=== PATIENT | female | born 1975 | race Caucasian/White ===

== ENCOUNTER → 2016-12-25 | Outpatient (CLI) | payer BC ==
[~2016-12-25] MED LIST: ATIVAN 0.50.5 MG/TAB PO; ELINEST PO; FIBER0.52 GM PO; FISH OIL 1000MG1 CAP PO; FLEXERIL 1010 MG/TAB PO; MULTI VITAMINS1 TAB PO; NORCO 325 MG-51 TAB PO; VITAMIN B125000 MCG SL
== END ==
LOC: MC.RAD 07:54
DX: Z12.31 Encounter for screening mammogram for malignant neoplasm of breast (principal)

== ENCOUNTER → 2018-03-19 | Outpatient (CLI) | payer BC | LOC: MC.RAD 12:46 | DX: Z12.31 Encounter for screening mammogram for malignant neoplasm of breast (principal) ==

== ENCOUNTER → 2019-06-10 | Outpatient (CLI) | payer BC | LOC: MC.RAD 07:42 | DX: Z12.31 Encounter for screening mammogram for malignant neoplasm of breast (principal) ==

== ENCOUNTER → 2021-07-08 | Outpatient (CLI) | payer BC | LOC: MC.RAD 07:23 | DX: Z12.31 Encounter for screening mammogram for malignant neoplasm of breast (principal) ==

== ENCOUNTER 2022-07-28 06:10 | Day surgery (SDC) | payer BC ==
[~2022-07-28] VITALS: Ht 175.3 cm; Wt 96.6 kg
[2022-07-28] MEDS ORDERED: ZESTRIL 10MG10 MG PO (06:47)
[2022-07-28] MEDS ORDERED: AMBIEN 10MG10 MG PO (06:47)
[2022-07-28] MEDS ORDERED: CRYSELLE 30 MCG1 TAB PO (06:51)
[2022-07-28 07:07] VITALS: BP 138/77; PULSE 76; TEMP 98.3
[2022-07-28 07:50] VITALS: BP 100/74; PULSE 64; TEMP 98.2
[2022-07-28 08:05] VITALS: BP 120/75; PULSE 64
[2022-07-28 08:20] VITALS: BP 110/75; PULSE 68
[2022-07-28 08:22] VITALS: BP 110/68; PULSE 75
--- NOTE | 2022-07-28 08:25 | NUR ---
0750 RETURNS TO ROOM 5 PER CART. AWAKE, ALERT. AMBULATES TO RECLINER WITH STANDBY ASSIST. RESP CLEAR, SPONTANEOUS. DENIES NAUSEA OR ABD PAIN. VITAL SIGNS OBTAINED. CALL LIGHT AT SIDE. DAD IN ROOM 0805 TOLERATES PO JUICE AND MUFFIN WITHOUT NAUSEA. 0813 DISCHARGE INSTRUCTIONS REVIEWED. PATIENT VERBALIZES UNDERSTANDING. COPY PROVIDED IN DISCHARGE FOLDER. 0815 DR. DOZIER HERE TO VISIT WITH PATIENT 0820 DRESSES SELF
== END 2022-07-28 08:29 | disposition home or self-care (01) ==
LOC: SDCO 06:10
DX: Z12.11 Encounter for screening for malignant neoplasm of colon (principal); Z80.0 Family history of malignant neoplasm of digestive organs; K57.30 Diverticulosis of large intestine without perforation or abscess without bleeding
CPT/HCPCS: J2704; J7120

== ENCOUNTER → 2022-12-01 | Outpatient (CLI) | payer BC ==
[~2022-12-01] MED LIST changes: +AMBIEN 10MG10 MG PO; +CRYSELLE 30 MCG1 TAB PO; +ZESTRIL 10MG10 MG PO
== END ==
LOC: MC.RAD 07:51
DX: Z12.31 Encounter for screening mammogram for malignant neoplasm of breast (principal)